=== PATIENT | male | born 1960 | race Caucasian/White ===

== ENCOUNTER → 2016-12-07 | Day surgery (SDC) | payer OTHER ==
[~2016-12-07] VITALS: Ht 177.8 cm; Wt 63.5 kg
[~2016-12-07] MED LIST: ADV250INH IH; ALBU8.5H2 INHALATION; Lactated Ringer's 1,000 ML IV ONE; NO MEDS; Propofol 10,000 mCg/mL 20 mL Inj ONE; TAMS0.4C98 PO
[2016-12-07 14:51] VITALS: BP 114/72; PULSE 50; RESP 17; O2SAT 98
--- NOTE | 2016-12-07 15:39 | PCM.HPANE ---
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) Medications Hypertension Medication: No Home Meds Incl Beta Tiny: No Reported Medications Tamsulosin (Flomax)0.4 Mg Capsule0.4 Mg PO DAILY Ref 0 12/07/16 Albuterol HFA (Proair HFA)8.5 Gm Hfa.aer.ad2 Puffs INHALATION Q4H #1 INHALER 12/07/16 Fluticasone/Salmeterol (Advair 250-50 Diskus)60 Puff/Inh Disk1 Puff IH BID #1 DISK Ref 0 12/07/16 [No Meds] No Conflict Check 12/07/16 History History of ENT Problems?: No HEENT History: Denies:: Abnormal Airway Denture Type: None Teeth Condition: Missing Teeth Other HEENT Pertinent History: missing multiple mollers Hx of Heart Problems?: Yes Cardiovascular History: Denies:: AICD Pacemaker Valvular Heart Disease Other Cardiac History: rhumatic fever Hx of Respiratory Problem?: Yes Respiratory History: Positive for:: Asthma COPD (possible) Hx Neurologic Problems?: No Neurological History: Denies:: CVA Hx of GI Problems?: Yes Gastrointestinal History: Positive for:: Gastroesphageal Reflux Hx of Problems?: No HX of Peritoneal Dialysis: No Male Hx: Denies:: Prostate Problems Skin History: Denies:: History Skin Disorders? Hx Musculoskeletal Problems?: No Musculoskeletal History: Denies:: Fibromyalgia Hx of Psycho/Social Problems?: No Hx Surgeries?: No Hx Any Other Health Problems?: Yes Hx Diabetes: No Hx Alcohol Use: Yes (occasionly) Stop/Bang Treated for Sleep Apnea?: No Do You Have a CPAP Machine?: No S-Snoring: Do You Snore Loudly: No T-Tired: feel tired, fatigued: No O-Obsered: Observed not breath: No P-Blood Pressure: treated: No B- Body Mass Index > 35 kg/m2: No A- Age over 50: Yes N- Neck Large Circumference: No G- Gender Male: Yes YUSRA Total Score: 2 YUSRA Risk Assessment: Low Risk, <3 Yes Risk Assessment Category Category 1A: Patient has history of documented sleep apnea, and HAS NOT received any narcotic, sedative or anesthesia administration during this stay. Category 1B: Patient has history of documented sleep apnea, and HAS received any narcotic , sedative or anesthesia administration during this stay Category 2: Patient has SUSPECTED Obstructive Sleep Apnea, and HAS received any narcotic , sedative or anesthesia administration during this stay. Category 3: Patient has SUSPECTED Obstructive Sleep Apnea and HAS NOT received narcotic, sedative or anesthesia administration during this stay. Category 4: Outpatient in Procedural Areas with known sleep apnea or who screen positive for High Risk via the STOP/BANG questionnaire. Exam Exam Vital Signs Vital Signs Date Time Temp Pulse Resp B/P Pulse Ox O2 Delivery O2 Flow Rate FiO2 12/07/16 14:51 36.5 50 17 114/72 98 Room Air General Appearance: Alert HEENT/AIRWAY: MP 1 Lungs: Clear to Auscultation Heart: Exam Unremarkable Plan Impression Patient chart reviewed, patient interviewed and anesthestic plan with risks, benefits, and alternatives discussed, and informed consent obtained. ASA Physical Status: ASA2 Mod Systemic Disease Anesthetic Plan: MAC Bene/Risks/Altern/Consents: Yes HP Complete Prior to Induction: Yes Carson Fortune MD Dec 07, 2016 15:39
[2016-12-07 16:00] VITALS: BP 120/74; PULSE 63; RESP 14; O2SAT 97
[2016-12-07 16:07] VITALS: BP 114/71; PULSE 61; RESP 14; O2SAT 96
[2016-12-07 16:11] VITALS: BP 114/68; PULSE 62; RESP 14; O2SAT 98
--- NOTE | 2016-12-07 16:29 | ENDO ---
[address] [address] ENDOSCOPY PROCEDURE PATIENT: JENISE PENN : 1960 MR#: [id number] ADMIT: 12/07/2016 JOB ID: [id number] DATE: 12/07/2016 PROCEDURE: Esophagogastroduodenoscopy. INDICATION: Gastroesophageal reflux as well as thrombocytopenia. The patient's ASA classification, Mallampati score and medications as per anesthesia note. INSTRUMENT USED: GIF H 180 J. PROCEDURE DETAILS: After informed consent was obtained, the patient was brought into the GI suite, where he was placed on oxygen via nasal cannula and monitored with continuous pulse oximeter, telemetry and blood pressure monitoring. A time-out was performed. Then, he was placed in the left lateral decubitus position and medications were administered for sedation. A bite block was placed. The standard EGD scope was inserted through the bite block and advanced under direct visualization to the second portion of duodenum without difficulty. FINDINGS: 1. In the duodenum, there were three superficial erosions noted. Multiple random biopsies were obtained. The remainder of the duodenal examination is otherwise unremarkable. 2. Normal-appearing pylorus, antrum and gastric body. 3. Retroflexed views of the gastric body revealed a normal-appearing cardia and fundus. 4. The GE junction was at approximately 40 cm. There was erythema, edema and mild erosions that are suggestive of esophagitis. The patient also had a diaphragmatic hiatus at 42 cm. The remainder of the esophagus otherwise appeared unremarkable. 5. No esophageal or gastric varices appreciated on today's examination. IMPRESSION: 1. Duodenal bulb erosions. 2. Distal esophagitis. RECOMMENDATIONS: 1. Await biopsy results. 2. Followup in GI clinic. 3. Reflux precautions. COMPLICATIONS: None. ESTIMATED BLOOD LOSS: Less than 5 mL.
--- NOTE | 2016-12-07 16:57 | PCM.ANEP1 ---
Post Anesthesia PACU Phase 1 Assessment Vital Signs Vital Signs Date Time Temp Pulse Resp B/P Pulse Ox O2 Delivery O2 Flow Rate FiO2 12/07/16 16:11 62 14 114/68 98 Room Air 12/07/16 16:07 61 14 114/71 96 Room Air 12/07/16 16:00 63 14 120/74 97 Room Air 12/07/16 14:51 36.5 50 17 114/72 98 Room Air Anesthetic Administered: MAC Level of Alertness: Awake, talking Pain: No Nausea or Vomiting: No CV Function & Hydration Stable: Yes Airway Device: Oxygen Delivery: Room Air Lungs: Clear to Auscultation Dermatome Level: Full Sensation PACU Phase 2 Assessment Complications: No Follow up Care: N/A Patient Instructions Provided: N/A Carson Fortune MD Dec 07, 2016 16:57
--- NOTE | 2016-12-13 13:39 | PATH ---
SURGICAL PATHOLOGY Attending Physician:Anne Adam CASE STATUS: Signed Out PATIENT NAME: JENISE PENN PID: [id number] : 1960 DATE COLLECTED:12/07/2016 00:00 SPECIMEN: 1: Duodenum, Biopsy 2: Gastric, Biopsy CLINICAL HISTORY: 1). DUODENAL ULCER BIOPSY 2). RANDOM GASTRIC BIOPSY FINAL DIAGNOSIS: 1. Duodenal Ulcer, Biopsy: Focal mucosal erosion and mild active duodenitis. Negative for features of sprue, dysplasia, and malignancy. No viral cytopathic effect identified. 2. Random Gastric Biopsy: Superficial portions of gastric body-type mucosa with no diagnostic abnormality. Negative for H. pylori organisms by H&E and immunohistochemistry studies; please see comment. Negative for intestinal metaplasia, dysplasia, and malignancy. ICD10: K29.7 NOTE: IMMUNOHISTOCHEMISTRY: Block 2A: H. pylori: Negative * This test was developed and its performance characteristics determined by [facility]. It has not been cleared or approved by the U.S. Food and Drug Administration. The FDA has determined that such clearance or approval is not necessary. This test is used for clinical purposes. It should not be regarded as investigational or for research. GROSS DESCRIPTION: The specimen is received in two formalin filled containers labeled with the patient's name. 1). The specimen is labeled "duodenal ulcer" and consists of 2 tiny portions of tissue which aggregate to 0.2 x 0.2 x 0.2 CM. The specimen is entirely submitted in cassette 1A. 2). The specimen is labeled "random gastric" and consists of 2 portions of tissue which aggregate to 0.3 x 0.2 x 0.2 CM. The specimen is entirely submitted in cassette 2A. 12/08/2016CA ICD-9 CODES: CPT CODES: 1: 02894 2: 51076, 44291, 99725 Electronically Signed Out Breana Cabezas MD [facility], [place] [address] Technical component performed at [facility], [address], [place], [address]
== END | disposition home or self-care (01) ==
LOC: END 00:36
PROVIDERS: ATTEND Internal Medicine Gastroenterology
DX: K29.80 Duodenitis without bleeding (principal); K21.9 Gastro-esophageal reflux disease without esophagitis; B18.2 Chronic viral hepatitis C; J44.9 Chronic obstructive pulmonary disease, unspecified; N40.0 Benign prostatic hyperplasia without lower urinary tract symptoms; M54.5 Low back pain; F12.90 Cannabis use, unspecified, uncomplicated; Z86.010 Personal history of colon polyps; Z87.898 Personal history of other specified conditions; Z87.891 Personal history of nicotine dependence; Z86.14 Personal history of Methicillin resistant Staphylococcus aureus infection
CPT/HCPCS: 43239; J2704; J7120